=== PATIENT | female | born 1990 | race Two or more races ===

== ENCOUNTER 2020-06-25 14:45 | Emergency (ER) | payer SELFPAY ==
[~2020-06-25] VITALS: Ht 154.9 cm; Wt 63.5 kg
[2020-06-25] MEDS ORDERED: OMEPRAZOLE20 M2 ORAL (14:57)
[2020-06-25] MEDS ORDERED: DICYCLOMINE HCL10 MG ORAL (14:57)
[2020-06-25] MEDS ORDERED: CIPROFLOXACIN500 M2 ORAL (14:57)
[2020-06-25] MEDS ORDERED: Ketorolac 30mg Inj IV ONE (15:00)
[2020-06-25 15:37] LABS: APPEARANCE,URINE CLEAR; BILIRUBIN, URINE NEGATIVE (NEGATIVE); COLOR,URINE PALE YELLOW; GLUCOSE, URINE (UA) NEGATIVE (NEGATIVE); KETONES,URINE 1+ (NEGATIVE); LEUKOCYTE ESTERASE ,URINE NEGATIVE (NEGATIVE); NITRITE,URINE NEGATIVE (NEGATIVE); PH,URINE 6 (4.5-8.0); PROTEIN,URINE NEGATIVE (NEGATIVE); UROBILINOGEN,URINE NORMAL MG/DL (0.0-1.0)
[2020-06-25] MEDS ORDERED: Docusate 100mg cap ORAL ONE (15:45)
[2020-06-25 15:49] LABS: BASOPHILS % (AUTO) 0.9 % (0.0-2.0); EOSINOPHILS % (AUTO) 0.8 % (0.0-3.0); HEMATOCRIT 41.3 % (37.0-47.0); HEMOGLOBIN 13.9 G/DL (12.0-16.0); LYMPHOCYTES % (AUTO) 21.5 % (20.0-45.0); MEAN CORPUSCULAR VOLUME 89 FL (80-99); MONOCYTES % (AUTO) 6.1 % (1.0-10.0); NEUTROPHILS % (AUTO) 70.7 % (45.0-75.0); PLATELET COUNT 376 K/UL (150-450); RED BLOOD COUNT 4.64 M/UL (4.20-5.40); RED CELL DISTRIBUTION WIDTH 11.9 % (11.6-14.8); WHITE BLOOD COUNT 12.9 K/UL (4.8-10.8)
[2020-06-25 15:53] LABS: ANION GAP 11 mmol/L (5-15); BLOOD UREA NITROGEN 8 mg/dL (7-18); CALCIUM 9.4 MG/DL (8.5-10.1); CARBON DIOXIDE 26 MMOL/L (21-32); CHLORIDE 102 MMOL/L (98-107); CREATININE 0.7 MG/DL (0.55-1.30); POTASSIUM 3.7 MMOL/L (3.5-5.1); SODIUM 139 MMOL/L (136-145)
[2020-06-25 15:58] LABS: ALANINE AMINOTRANSFERASE 24 U/L (12-78); ALBUMIN/GLOBULIN RATIO 0.9 (1.0-2.7); ALKALINE PHOSPHATASE 99 U/L (46-116); ASPARTATE AMINO TRANSFERASE 14 U/L (15-37); BILIRUBIN,TOTAL 0.3 MG/DL (0.2-1.0)
[2020-06-25] MEDS ORDERED: Omnipaque-300 100ml vial INJ PRN (16:00)
--- NOTE | 2020-06-25 16:00 | NUR ---
ED Nurse Note:pt. came with abdominal pain nausea vomiting, blood and urine sent to labs, CT scan done given IV fluids and meds
[2020-06-25 17:03] VITALS: BP 152/96
--- NOTE | 2020-06-25 17:18 | Diagnostic Imaging Report ---
Clinical Indication: Abdominal pain and upper epigastric pain for 2 weeks, nausea and vomiting Technique: No oral contrast utilized, per emergency room physician request IV administration nonionic contrast. Venous phase spiral acquisition obtained through the abdomen and pelvis. Multiplanar reconstructions were generated. Total dose length product 287 mGycm. CTDIvol(s) 5 mGy. Dose reduction achieved using automated exposure control Comparison: none Findings: Lack of enteric contrast limits assessment of the GI tract. The appendix is normal. Moderate stool is seen in the ascending colon. No evidence of diverticulosis or diverticulitis. No small bowel distention. The distal esophagus, stomach, duodenum are unremarkable. No free or loculated intraperitoneal gas or fluid is evident. The gallbladder contains gallstones. No biliary ductal dilatation. The pancreas, spleen, adrenals, kidneys are unremarkable. There is what appears to be a partially collapsed right ovarian follicle. The uterus and ovaries are otherwise unremarkable. No pelvic mass or adenopathy. No retroperitoneal or mesenteric mass or adenopathy. The included lung bases are clear. The bones are unremarkable. Impression: Limited assessment of the GI tract, due to lack of enteric contrast administration No definite acute process Cholelithiasis Possible partially collapsed ovarian follicle on the right The CT scanner at [facility] is accredited by the [employer] and the scans are performed using protocols designed to limit radiation exposure to as low as reasonably achievable to attain images of sufficient resolution adequate for diagnostic evaluation.
--- NOTE | 2020-06-25 17:30 | Emergency Room Report ---
History of Present Illness General Chief Complaint: Abdominal Pain Source: Patient Present Illness HPI 29-year-old female with no known significant past medical history other than gastritis here complaining of few days of worsening epigastric and right upper quadrant abdominal pain with radiation to back and upper back. Complains of acid reflux and nausea. Denies any vomiting, diarrhea however complains of flatulence and intermittent constipation. Denies any blood in stool. Denies fever and chills, chest pain, shortness of breath, cough and congestion. Denies any urinary symptoms. Has not taken medication for symptom relief. Denies tobacco smoke, marijuana use, alcohol intake. Denies Allergies: Coded Allergies: No Known Allergies (Unverified , 06/25/20) COVID-19 Screening Contact w/high risk pt: No Experienced COVID-19 symptoms?: Yes COVID-19 Testing performed POKER MANAGER: No COVID-19 Screening: Negative COVID-19 COVID-19 Testing Source: at work Patient History Past Medical History: see triage record Past Surgical History: none Pertinent Family History: none Last Menstrual Period: last month Now: No Immunizations: UTD Reviewed Nursing Documentation: PMH: Agreed; PSxH: Agreed Nursing Documentation-PMH Past Medical History: No History, Except For Hx Gastrointestinal Problems: Yes - gatritis Review of Systems All Other Systems: negative except mentioned in HPI Physical Exam Vital Signs Date Time Temp Pulse Resp B/P (MAP) Pulse Ox O2 Delivery O2 Flow Rate FiO2 06/25/20 14:48 98.2 118 20 152/96 (114) 99 Room Air Sp02 EP Interpretation: reviewed, normal General Appearance: no apparent distress, alert, GCS 15, non-toxic Head: normocephalic, atraumatic Eyes: bilateral eye normal inspection, bilateral eye PERRL ENT: hearing grossly normal, normal pharynx, no angioedema, normal voice Neck: full range of motion, supple/symm/no masses Respiratory: chest non-tender, lungs clear, normal breath sounds, speaking full sentences Cardiovascular #1: regular rate, rhythm, no edema, no JVD, no murmur Gastrointestinal: normal bowel sounds, non tender, soft, no mass, no organomegaly, no peritonitis, no bruit, non-distended, no guarding, no hernia, no pulsatile mass, no rebound, other - Negative Reyez's Rectal: deferred Genitourinary: no CVA tenderness Musculoskeletal: back normal Neurologic: alert, motor strength/tone normal, oriented x3, sensory intact, responsive, speech normal Psychiatric: judgement/insight normal, memory normal, mood/affect normal, no suicidal/homicidal ideation Skin: no rash Lymphatic: no adenopathy Medical Decision Making PA Attestation ALL Diagnosis and treatment plan reviewed and discussed with my supervising physician Dr. Kim Diagnostic Impression: Primary Impression: Cholelithiases Additional Impression: Gastritis ER Course 21-year-old female with no known significant past medical history other than gastritis here complaining of few days of worsening epigastric and right upper quadrant abdominal pain with radiation to back and upper back. Complains of acid reflux and nausea. Denies any vomiting, diarrhea however complains of flatulence and intermittent constipation. Denies any blood in stool. Denies fever and chills, chest pain, shortness of breath, cough and congestion. Denies any urinary symptoms. Has not taken medication for symptom relief. Denies tobacco smoke, marijuana use, alcohol intake. Denies Ddx considered but are not limited to: appendicitis, cholecystitis, gastritis, gastroenteritis, UTI, pyelonephritis, SBO, diverticulitis, influenza with GI manifestation, GA, complication with Vital signs: are WNL, pt. is afebrile H&PE are most consistent with: Cholelithiasis without cholecystitis, gastritis, collapsed ovarian follicle ORDERS: abdominal CT, abdominal pain set, Pepcid, Zofran, Tylenol, KUB ED INTERVENTIONS: Toradol, NS bolus, Zofran, Pepcid DISCHARGE: At this time pt. is stable for d/c to home. Will provide printed patient care instructions, and any necessary prescriptions. Care plan and follow up instructions have been discussed with the patient prior to discharge. Patient take medication as directed, follow primary doctor for referral to metalsmith for possible endoscopy to rule out ulcer, also follow-up with [employer] in regards to the collapsed ovarian follicle, follow-up with general surgeon for cholelithiasis. Patient symptoms return to the emergency room Other X-Ray Diagnostic Results Other X-Ray Diagnostic Results : X-Ray ordered: KUB # of Views/Limited Vs Complete: 1 View Indication: Pain EP Interpretation: Yes PA Xray: Interpretation reviewed, by supervising MD, and agrees with findings. Interpretation: nonspecific bowel gas, no sbo Impression: No acute disease Electronically Signed by: Irene Bazzi PA-C CT/MRI/US Diagnostic Results CT/MRI/US Diagnostic Results : Imaging Test Ordered: CT abdomen pelvis with contrast Impression Cholelithiasis without cholecystitis, collapsed ovarian follicle otherwise within normal limits Last Vital Signs Date Time Temp Pulse Resp B/P (MAP) Pulse Ox O2 Delivery O2 Flow Rate FiO2 06/25/20 17:03 99 20 Room Air 06/25/20 17:03 98.2 152/96 99 Disposition: HOME, SELF-CARE Condition: Stable Scripts Ondansetron (Zofran) 4 Mg Tablet 4 MG ORAL Q6H PRN for Nausea & Vomiting, #14 TAB Prov: Irene Thomas 06/25/20 Acetaminophen* (TYLENOL EXTRA STRENGTH*) 500 Mg Tablet 500 MG ORAL Q8H PRN for Prn Headache/Temp > 101, #30 TAB 0 Refills Prov: Irene Thomas 06/25/20 Famotidine* (Pepcid 20mg tablet*) 20 Mg Tablet 20 MG ORAL TWICE A DAY, #60 TAB 0 Refills Prov: Irene Thomas 06/25/20 Patient Instructions: Cholelithiasis, [id number], Gastritis, Adult, [id number] Additional Instructions: Follow-up with primary care provider for referral to general surgeon due to your gallstones, also her primary doctor history for H. pylori bacteria and sent to metalsmith to rule out gastric versus duodenal ulcer due to your gastritis exacerbation of pain radiation to back. Also you have a collapsed follicle in your ovary which needs to be followed up with r and d lab technician. If worsening symptoms return to the emergency Irene Thomas Jun 25, 2020 17:30
[2020-06-25] MEDS ORDERED: ZOFRAN4 M1 ORAL (17:32)
[2020-06-25] MEDS ORDERED: TYLENOL EXTRA500 MG ORAL (17:32)
[2020-06-25] MEDS ORDERED: FAMOTIDINE20 MG ORAL (17:32)
[2020-06-25 17:50] VITALS: BP 152/96
--- NOTE | 2020-06-25 17:50 | NUR ---
ER DISCHARGE NOTE: Patient is cleared to be discharged per ERMD, pt is aox4, on room air, with stable vital signs. pt was given dc and prescription instructions, pt was able to verbalize understanding, pt id band and iv site removed without complications. pt is able to ambulate with steady gait. pt took all belongings.
--- NOTE | 2020-06-25 19:00 | Diagnostic Imaging Report ---
Indication: Abdominal pain for 2 weeks Technique: Supine view of the abdomen Comparison: none Findings: Bowel gas pattern is unremarkable. No unusual masses or calcifications. Impression: No acute process
== END 2020-06-25 17:50 | disposition home or self-care (01) ==
LOC: EMR 17:25
DX: K80.20 Calculus of gallbladder without cholecystitis without obstruction (principal); K29.70 Gastritis, unspecified, without bleeding
CPT/HCPCS: 36415; 74018; 74177; 80053; 80307; 81003; 81025; 83690; 84484; 85025; 96361; 96374; 96375; 99284; G0480; J1885; J2405; J7030; Q9965; S0028